=== PATIENT | female | born 1965 | race Caucasian/White ===

== ENCOUNTER 2019-12-21 15:00 | Inpatient (IN) ==
[2019-12-21] MEDS ORDERED: NICODERM PATCH TD PRN (19:43)
[2019-12-21] MEDS ORDERED: SEROQUEL PO PRN (19:43)
[2019-12-21] MEDS ORDERED: SENOKOT PO PRN (19:43)
[2019-12-21] MEDS ORDERED: DESYREL PO PRN (19:43)
[2019-12-21] MEDS ORDERED: TYLENOL PO PRN (19:43)
[2019-12-21] MEDS ORDERED: IMODIUM PO PRN (19:43)
[2019-12-21] MEDS ORDERED: BENTYL PO PRN (19:43)
[2019-12-21] MEDS ORDERED: ZOFRAN ODT PO PRN (19:43)
[2019-12-21] MEDS ORDERED: ROBAXIN PO PRN (19:43)
[2019-12-21] MEDS ORDERED: MOTRIN PO PRN (19:43)
[2019-12-21] MEDS ORDERED: SALINE LOCK IV FLUID XX ONE (19:43)
[2019-12-21] MEDS ORDERED: MAALOX PLUS LIQUID PO PRN (19:43)
[2019-12-21] MEDS ORDERED: TUBERSOL ID ONE (19:43)
[2019-12-21] MEDS ORDERED: PHENOBARBITAL IV PRN (19:43)
[2019-12-21] MEDS ORDERED: DULCOLAX PR PRN (19:43)
[2019-12-21] MEDS ORDERED: ZOFRAN IV PRN (19:43)
[2019-12-21] MEDS ORDERED: D5W 1,000 ML IV PRN (19:43)
[2019-12-21] MEDS ORDERED: ATARAX PO PRN (19:43)
[2019-12-21] MEDS ORDERED: SYNTHROID PO SCH (19:45)
[2019-12-21 20:30] LABS: HEMATOCRIT 39.5 % (37.0-47.0); HEMOGLOBIN 12.6 g/dL (12.0-16.0); MCH 33.3 PG (27-31); MCHC 31.9 g/dL (33-37); MCV 104.5 FL (81-99); MPV 10.2 FL (7.4-10.4); RBC 3.78 XMIL (4.2-5.4); RDW 14.9 % (11.5-14.5); WBC 4.98 X1000 (4.8-10.8)
[2019-12-21 20:35] LABS: INR 0.92; PROTIME 12.8 Seconds (11.0-16.0)
[2019-12-21] MEDS: COLACE PO SCH (20:42)
[2019-12-21 20:43] LABS: AMYLASE 60 U/L (20-200); LIPASE 117 U/L (13-60)
[2019-12-21] MEDS: LIBRIUM PO SCH (20:43)
[2019-12-21] MEDS: DESYREL PO SCH (20:43)
[2019-12-21] MEDS: PEPCID PO SCH (20:43)
[2019-12-21 20:48] LABS: AGAP 11; ALBUMIN 3.7 g/dL (3.5-5.0); ALKALINE PHOSPHATASE 68 U/L (32-104); BUN 9 mg/dL (8-22); CALCIUM 9.1 mg/dL (8.8-10.2); CHLORIDE 95 mmol/L (98-107); COSMO 271; CREATININE 0.6 mg/dL (0.5-0.9); ESTIMATED GFR > 60; GLUCOSE 106 mg/dL (70-104); GOT 43 U/L (10-30); GPT 54 U/L (10-36); POTASSIUM 3.2 mmol/L (3.5-5.1); SODIUM 136 mmol/L (136-145); TCO2 30 mmol/L (25-35); TOTAL PROTEIN 6.5 g/dL (6.3-8.3)
[2019-12-21 23:04] LABS: URINE SOURCE VOIDED
[2019-12-21 23:11] LABS: BILIRUBIN URINE NEGATIVE (NEGATIVE); BLOOD URINE NEGATIVE (NEGATIVE); COLOR YELLOW; GLUCOSE URINE NEGATIVE (NEGATIVE); KETONE URINE NEGATIVE (NEGATIVE); LEUKOCYTES URINE NEGATIVE (NEGATIVE); NITRITE URINE NEGATIVE (NEGATIVE); PROTEIN URINE NEGATIVE (NEGATIVE); SP GRAVITY URINE 1.011; TURBIDITY URINE HAZY (CLEAR); UROBILINOGEN URINE NORMAL (NORMAL)
[2019-12-21 23:27] LABS: UR EPITHELIAL CELLS >10 /HPF (<10); URINE BACTERIA 4+ /HPF; URINE CASTS NONE SEEN; URINE CRYSTALS NONE SEEN; URINE RBC <10 /HPF (<10); URINE SMALL ROUND CELLS NONE SEEN; URINE WBC <10 /HPF (<10); URINE YEAST NONE SEEN
[2019-12-22] MEDS: LIBRIUM PO SCH ×4 (02:13→22:07)
--- NOTE | 2019-12-22 04:13 | HISTORY AND PHYSICAL ---
CHIEF COMPLAINT: Nausea, vomiting. HISTORY OF PRESENT ILLNESS: Patient is a 54-year-old female who presented to [facility] secondary to nausea, vomiting, abdominal pain. She has been drinking heavily for quite some time. She states she has been trying to stop but she has been having increasing tremors, nausea, increasing muscle aches and has had to continue to drink to alleviate said symptoms. SOCIAL HISTORY: Patient is . She is currently unemployed. Lives at home in [place]. PAST MEDICAL HISTORY: Congestive heart failure, history of pancreatitis, cervical spine radiculopathy for which she has surgery pending. Has chronic anxiety, depression, history of blackouts that are alcohol related. She has had a fall from injuries that also were alcohol related. History of fluid overload in June of 2019, hypertension, pancreatitis in the fall of 2018. MEDICATIONS: Paxil 20, torsemide 20, potassium, metoprolol, Sinemet, Nexium, trazodone. ALLERGIES: No known drug allergies. REVIEW OF SYSTEMS: Patient's CIWA score is 29 secondary to nausea, vomiting, tremors. She is anxious, fidgety, easily agitated, unable sit still. She has been having auditory and visual hallucinations. Been having skin crawling, pins and needles, frequent nausea, occasional dry heaves, frequent sweating, chills. Does admit to having suicidal ideations although states that she would never do it and has no plans and no desire presently. SUBSTANCE ABUSE HISTORY: The patient was in [place] in 2009 for 3 months outpatient treatments. Stayed sober for 8 years. Notes alcohol has caused financial and health problems, relationship problems. She has also had pancreatitis secondary to alcohol as well as blackouts. States her kids are mad at her. She was unable to have surgery on her neck secondary to her alcoholism. Started drinking as early as age 11, had been drinking up to a fifth of a day for the past year. Over the last several days she has only been taking a few shots here and they are trying to keep the withdrawal symptoms down. FAMILY HISTORY: Noncontributory. PHYSICAL EXAMINATION: VITAL SIGNS: Reviewed. GENERAL: She is awake, alert. She is in no current respiratory distress, quite pleasant to talk with. HEENT: Normocephalic. NECK: Supple. CARDIOVASCULAR: Regular rate. CHEST: Clear. ABDOMEN: Soft, nondistended. EXTREMITIES: Moves all extremities. No edema. NEUROLOGIC: No focal neurological changes. SKIN: Warm, dry. No rashes. Labs pending. ASSESSMENT: 1. Nausea, vomiting. 2. Abdominal pain. 3. Tremors. 4. Myalgias. 5. Paresthesias. 6. Paroxysmal sweating. 7. Alcohol abuse, withdrawal and stabilization. PLAN: We are going to continue patient in the hospital. Continue high-dose Librium taper. Continue counseling. We will not be able to use naltrexone on discharge as she is going to schedule surgery as soon as she gets sober. cc: Moses Lance MD
[2019-12-22] MEDS: PROTONIX PO SCH (06:06)
[2019-12-22] MEDS ORDERED: KLOR-CON PO ONE ×2 (08:13→10:15)
[2019-12-22] MEDS ORDERED: M.V.I.-12 10 ML, FOLIC ACID 1 MG, MAGNESIUM SULFATE 1 GM, THIAMINE 100 MG in NS 1,000 ML IV ONE (09:00)
[2019-12-22] MEDS: FOLIC ACID PO SCH (09:34)
[2019-12-22] MEDS: NEXIUM PO SCH (09:52)
[2019-12-22] MEDS: VITAMIN B-1 PO SCH (09:52)
[2019-12-22] MEDS: THERA M PLUS PO SCH (09:52)
[2019-12-22] MEDS: DEMADEX PO SCH (09:53)
[2019-12-22] MEDS: PAXIL PO SCH (09:53)
--- NOTE | 2019-12-22 18:49 | PROGRESS NOTE ---
DATE: 12/22/2019 SUBJECTIVE: Patient notes that she is feeling a lot better. Tremors have improved. She is actually able to hold a fork and feed herself. PHYSICAL EXAMINATION: Vital Signs: Temperature 98, pulse 65, respiratory rate 18, BP 88/90 to 133/84. General: Patient is pleasant. She is in no distress, sitting up in bed. HEENT: Normocephalic. Neck: Supple. Cardiovascular: Regular rate. Chest: Clear. Abdomen: Soft Neurologic: Improved. Although still present, her tremors are very minimal. Extremities: Moves all extremities. No edema. ASSESSMENT: 1. Nausea, vomiting 2. Abdominal pain. 3. Myalgias. 4. Tremors. 5. Paresthesias. 6. Paroxysmal sweating. 7. Alcohol abuse withdrawal and stabilization. PLAN: Continue patient in hospital. Continue counseling and Librium, wean as tolerated. cc: Moses Lance MD
[2019-12-22] MEDS: PEPCID PO SCH (22:07)
[2019-12-22] MEDS: COLACE PO SCH (22:07)
[2019-12-22] MEDS: DESYREL PO SCH (22:07)
[2019-12-23] MEDS: LIBRIUM PO SCH ×3 (02:39→16:44)
[2019-12-23] MEDS: PROTONIX PO SCH ×2 (06:20→06:26)
[2019-12-23] MEDS ORDERED: LIBRIUM PO SCH (09:30)
[2019-12-23] MEDS: VITAMIN B-1 PO SCH (09:38)
[2019-12-23] MEDS: DEMADEX PO SCH (09:38)
[2019-12-23] MEDS: FOLIC ACID PO SCH (09:38)
[2019-12-23] MEDS: PAXIL PO SCH (09:38)
[2019-12-23] MEDS: THERA M PLUS PO SCH (09:38)
[2019-12-23] MEDS: NEXIUM PO SCH (09:38)
[2019-12-23] MEDS ORDERED: SYNTHROID PO SCH (09:46)
[2019-12-23] MEDS: SYNTHROID PO SCH (11:50)
--- NOTE | 2019-12-23 18:05 | PROGRESS NOTE ---
DATE: 12/23/2019 SUBJECTIVE: The patient notes that she is feeling a lot better. Denies any fevers, chills, cough, congestion, dysuria, frequency. Tremors have improved. PHYSICAL EXAMINATION: Vital Signs: Reviewed. She is awake, alert, oriented. Temperature 97 degrees, pulse 72, respiratory rate 18, BP 117/78. General: Patient is pleasant. She is in no distress. HEENT: Normocephalic. Neck: Supple. Cardiovascular: Regular rate. Chest: Clear. Abdomen: Soft. Extremities: Moves all extremities. Neurologic: No changes. ASSESSMENT: 1. Nausea and vomiting. 2. Abdominal pain. 3. Myalgias. 4. Paresthesias. 5. Paroxysmal sweating. 6. Alcohol abuse withdrawal and stabilization. 7. Chronic cervical discopathy. PLAN: We are going to continue the patient in the hospital. Continue Librium taper. I did discussed with her the use of Suboxone; although, cannot do that currently as she is going to be undergoing a cervical spine surgery as soon as she is medically cleared for her alcohol withdrawal. cc: Moses Lance MD
[2019-12-23] MEDS: COLACE PO SCH (20:17)
[2019-12-23] MEDS: DESYREL PO SCH (20:17)
[2019-12-23] MEDS: PEPCID PO SCH (20:17)
[2019-12-24] MEDS: SYNTHROID PO SCH (06:06)
[2019-12-24] MEDS: PROTONIX PO SCH (06:07)
[2019-12-24 06:17] LABS: HEMATOCRIT 35.4 % (37.0-47.0); HEMOGLOBIN 11.8 g/dL (12.0-16.0); MCH 34.2 PG (27-31); MCHC 33.3 g/dL (33-37); MCV 102.6 FL (81-99); MPV 9.9 FL (7.4-10.4); RBC 3.45 XMIL (4.2-5.4); RDW 14.4 % (11.5-14.5); WBC 4.86 X1000 (4.8-10.8)
[2019-12-24 06:37] LABS: UR AMPHETAMINES QUAL NONE DETECTED (NONE DETECT); UR BARBITUATES QUAL NONE DETECTED (NONE DETECT); UR BENZODIAZEPIN QUAL PRESUMPTIVE POSITIVE (NONE DETECT); UR CANNABINOIDS QUAL NONE DETECTED (NONE DETECT); UR COCAINE QUAL NONE DETECTED (NONE DETECT); UR METHADONE QUAL NONE DETECTED (NONE DETECT); UR METHAMPHETAMINE QUAL NONE DETECTED (NONE DETECT); UR OPIATES QUAL NONE DETECTED (NONE DETECT); UR OXYCODONE QUAL NONE DETECTED (NONE DETECT); UR PCP QUAL NONE DETECTED (NONE DETECT); UR PROPOXYPHENE QUAL NONE DETECTED (NONE DETECT); UR TCA QUAL NONE DETECTED (NONE DETECT)
[2019-12-24 06:52] LABS: AGAP 12; ALKALINE PHOSPHATASE 53 U/L (32-104); BUN 7 mg/dL (8-22); CALCIUM 8.9 mg/dL (8.8-10.2); CHLORIDE 92 mmol/L (98-107); COSMO 270; CREATININE 0.6 mg/dL (0.5-0.9); ESTIMATED GFR > 60; GLUCOSE 91 mg/dL (70-104); GOT 25 U/L (10-30); GPT 38 U/L (10-36); MAGNESIUM 1.5 mg/dL (1.5-2.7); POTASSIUM 2.8 mmol/L (3.5-5.1); SODIUM 136 mmol/L (136-145); TCO2 32 mmol/L (25-35); TOTAL PROTEIN 5.5 g/dL (6.3-8.3)
[2019-12-24] MEDS ORDERED: KLOR-CON PO ONE (08:00)
[2019-12-24] MEDS: PAXIL PO SCH (08:35)
[2019-12-24] MEDS: VITAMIN B-1 PO SCH (08:35)
[2019-12-24] MEDS: FOLIC ACID PO SCH (08:35)
[2019-12-24] MEDS: THERA M PLUS PO SCH (08:35)
[2019-12-24] MEDS: NEXIUM PO SCH (08:35)
[2019-12-24] MEDS: DEMADEX PO SCH (08:35)
[2019-12-24] MEDS ORDERED: LIBRIUM PO SCH ×2 (09:00)
[2019-12-24] MEDS: KLOR-CON PO SCH ×2 (13:26→20:09)
--- NOTE | 2019-12-24 18:00 | PROGRESS NOTE ---
DATE: 12/24/2019 SUBJECTIVE: The patient overall notes that she is feeling better, although she is still very fatigued and tired. Denies any chest pain or palpitations. PHYSICAL EXAMINATION: Vital Signs: Reviewed. Temperature 97 degrees, pulse 70, respiratory rate 18, BP 118/88. General: Patient is in no current respiratory distress. HEENT: Normocephalic. Neck: Supple. Cardiovascular: Regular rate. Chest: Clear. Abdomen: Soft. Extremities: Moves all extremities. Neurologic: No changes. ASSESSMENT: 1. Nausea and vomiting. 2. Abdominal pain. 3. Myalgias. 4. Paresthesias. 5. Paroxysmal sweating. 6. Alcohol abuse, withdrawal and stabilization 7. Chronic cervical disk pain. PLAN: We are going to continue patient in the hospital. Will decrease her Librium and will follow. cc: Moses Lance MD
[2019-12-24] MEDS: COLACE PO SCH (20:09)
[2019-12-24] MEDS: LIBRIUM PO SCH (20:09)
[2019-12-24] MEDS: PEPCID PO SCH (20:09)
[2019-12-24] MEDS: DESYREL PO SCH (20:09)
[2019-12-25] MEDS: SYNTHROID PO SCH (06:06)
[2019-12-25] MEDS: NEXIUM PO SCH (06:06)
[2019-12-25 07:06] LABS: HEMATOCRIT 34.7 % (37.0-47.0); HEMOGLOBIN 11.3 g/dL (12.0-16.0); MCH 33.6 PG (27-31); MCHC 32.6 g/dL (33-37); MCV 103.3 FL (81-99); MPV 9.7 FL (7.4-10.4); RBC 3.36 XMIL (4.2-5.4); RDW 14.2 % (11.5-14.5); WBC 5.12 X1000 (4.8-10.8)
[2019-12-25 07:37] VITALS: BP 105/72
[2019-12-25] MEDS: LIBRIUM PO SCH (08:24)
[2019-12-25] MEDS: PAXIL PO SCH (08:24)
[2019-12-25] MEDS: VITAMIN B-1 PO SCH (08:24)
[2019-12-25] MEDS: FOLIC ACID PO SCH (08:24)
[2019-12-25] MEDS: KLOR-CON PO SCH (08:24)
[2019-12-25] MEDS: DEMADEX PO SCH (08:24)
[2019-12-25] MEDS: THERA M PLUS PO SCH (08:24)
[2019-12-25 09:07] LABS: AGAP 12; ALKALINE PHOSPHATASE 53 U/L (32-104); BUN 7 mg/dL (8-22); CHLORIDE 98 mmol/L (98-107); COSMO 273; CREATININE 0.5 mg/dL (0.5-0.9); ESTIMATED GFR > 60; GLUCOSE 89 mg/dL (70-104); GOT 23 U/L (10-30); GPT 36 U/L (10-36); MAGNESIUM 1.5 mg/dL (1.5-2.7); POTASSIUM 3.1 mmol/L (3.5-5.1); SODIUM 138 mmol/L (136-145); TCO2 29 mmol/L (25-35); TOTAL PROTEIN 5.3 g/dL (6.3-8.3)
[2019-12-25] MEDS ORDERED: PNEUMOVAX 23 IM ONE (10:04)
--- NOTE | 2019-12-26 00:01 | DISCHARGE SUMMARY ---
ADMISSION DATE: 12/21/2019 DISCHARGE DATE: 12/25/2019 DISCHARGE DIAGNOSES: 1. Nausea and vomiting. 2. Abdominal pain. 3. Myalgias. 4. Paresthesias. 5. Tremors. 6. Generalized weakness, improving. 7. Cervical disk disease. 8. Chronic alcohol abuse, withdrawal and stabilization. PLAN: We are going to discharge the patient home. Currently, she is improved. She is in no current respiratory distress. She is able to ambulate in the room with minimal difficulty. We will continue to follow. DISPOSITION: Discussed with her that she does need to consider having a sponsor. Does not need to have alone time currently. Discussed that we will not use naltrexone as she is currently scheduling surgical intervention for her cervical disk disease. She has been weaned off Librium. TIME SPENT: Greater than 30 minutes was spent in total care. cc: Moses Lance MD
== END 2019-12-25 15:07 | disposition home or self-care (01) | DRG 392 ==
LOC: P.DIRADM 16:15 → P.MEDSURG 16:41
PROVIDERS: ADMIT Family Medicine; ATTEND Family Medicine